=== PATIENT | female | born 2005 | race Asian ===

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

== ENCOUNTER → 2024-01-07 | Outpatient (CLI) | payer OTHER | END | disposition home or self-care (01) | LOC: RADMN 09:11 | PROVIDERS: ATTEND Legal Medicine | DX: Z13.83 Encounter for screening for respiratory disorder NEC (principal) | CPT/HCPCS: 71046 ==